=== PATIENT | female | born 1990 | race Hispanic/Latino ===

== ENCOUNTER 2022-10-31 21:02 | Emergency (ER) | payer BC ==
[2022-10-31] MEDS ORDERED: Lidocaine 1% (PF) 30 ML VIAL ONE (21:53)
[2022-10-31] MEDS ORDERED: Silver Nitrate Application 1 EACH ONE (21:56)
[2022-10-31] MEDS ORDERED: Bacitracin 1 PK ONE ×2 (21:57)
== END 2022-10-31 22:36 | disposition home or self-care (01) ==
LOC: CSHERS 21:02
DX: L60.0 Ingrowing nail (principal); E11.9 Type 2 diabetes mellitus without complications; I10 Essential (primary) hypertension
CPT/HCPCS: 11750; J2001